=== PATIENT | male | born 1975 | race Caucasian/White ===

== ENCOUNTER 2017-07-01 03:17 | Emergency (ER) | payer BC ==
[2017-07-01] MEDS ORDERED: Lidocaine 1%* 5 ML VIAL ONE (04:15)
[2017-07-01] MEDS ORDERED: Lidocaine 2% EPI 1:200000 MPF* 20 ML VIAL ONE (04:16)
[2017-07-01] MEDS ORDERED: Amoxicillin/Clavulanate TAB* 875 MG PO ONE (04:45)
[2017-07-01] MEDS ORDERED: Tetan/Diph/Pertus SYR(Tdap)* 0.5 ML SYR(BOOSTRIX) use SYR IM ONE (04:48)
[2017-07-01 05:09] VITALS: BP 131/79
--- NOTE | 2017-07-02 16:34 | ED ---
Merissa Knapp Emily, scribed for Rom Avilez MD on 07/01/17 at 0350 . Bite Injury/Animal - HPI Summary HPI Summary: This patient is a 42 year old M presenting to [facility] [place] accompanied by friends with a chief complaint of animal bite to face that occurred [employer]. Pt reports being bitten once by neighbors dog while trying to break up a dog fight. The patient rates the pain 0/10 in severity. Symptoms aggravated by nothing. Symptoms alleviated by nothing. Pt reports dog being up to date on vaccines. - History of Current Complaint Chief Complaint: EDAnimalBite Stated Complaint: DOG BITE Time Seen by Provider: 07/01/17 03:26 Hx Obtained From: Patient Onset of Injury: Happened hours ago, Still Present Type of Bite: Pet Has Animal Been Immunized?: Yes Severity Initially: Mild Severity Currently: Mild Pain Intensity: 0 Pain Scale Used: 0-10 Numeric Character: Puncture Aggravating Factor(s): Nothing Alleviating Factor(s): Nothing - Allergies/Home Medications Allergies/Adverse Reactions: Allergies Allergy/AdvReac Type Severity Reaction Status Date / Time No Known Allergies Allergy Verified 07/01/17 03:23 PMH/Surg Hx/FS Hx/Imm Hx Previously Healthy: No GI History: Reports: Hx Gastroesophageal Reflux Disease Opthamlomology History: Denies: Hx Legally Blind - Surgical History Surgery Procedure, Year, and Place: [place] as a child - Immunization History Date of Tetanus Vaccine: unk Date of Influenza Vaccine: none Infectious Disease History: No Infectious Disease History: Denies: Traveled Outside the [place] in Last 30 Days - Family History Known Family History: Positive: Diabetes - Social History Occupation: Employed Full-time Lives: With Family Alcohol Use: Weekly Substance Use Type: Reports: None Smoking Status (MU): Never Smoked Tobacco Review of Systems Negative: Fever Positive: Other - Positive animal bite to face All Other Systems Reviewed And Are Negative: Yes Physical Exam - Summary Physical Exam Summary: Appearance: Well-appearing, no distress, Well-nourished Skin: Warm, color reflects adequate perfusion, 5 cm laceration on right maxilla with small flap mild bleeding. Multiple superficial abrasions approximately 8 cm to right maxillary area. Tenderness to palpation, mild. At the chin, 3 cm laceration with flap, bleeding controlled. 2.5 cm superficial laceration. Head: Normal Head/Face inspection Eyes: Conjunctiva clear ENT: Normal inspection Neck: Supple, no nodes, no JVD. Respiratory: Lungs clear, Normal breath sounds, no respiratory distress Cardio: RRR, No murmur, pulses normal, brisk capillary refill Abdomen: soft, nontender, no guarding, no rebound Bowel sounds: present Musculoskeletal: Strength Intact/ ROM intact. No calf tenderness. No edema. Neuro: Alert, muscle tone normal, facial symmetry, speech normal, sensory/motor intact Psychological: Normal Triage Information Reviewed: Yes Vital Signs On Initial Exam: Initial Vitals Temp Pulse Resp BP Pulse Ox 97.3 F 98 16 137/82 96 18 03:18 18 03:18 07/01/17 03:18 07/01/17 03:18 07/01/17 03:18 Vital Signs Reviewed: Yes Procedures - Laceration/Wound Repair 1 Location: face Description: Linear Anesthesia: Local, 1.0%, Lido Length, Depth and Shape: 5cm laceration with flap Betadine Prep?: No Laceration/Wound Explored: clean Closure: Single Layer, [place] #__ Suture Type: Nylon Number of Sutures: 4 Sterile Dressing Applied?: Yes 2 Location: Other - chin Description: Linear Anesthesia: Local, 1.0%, Lido Length, Depth and Shape: 3.0 cm laceration with flap Betadine Prep?: No Laceration/Wound Explored: clean Closure: Single Layer Suture Type: Nylon Number of Sutures: 3 Sterile Dressing Applied?: Yes 3 Location: Other - chin Description: Linear Anesthesia: Local, 1.0% Length, Depth and Shape: 2.5cm superficial Closure: Single Layer Suture Type: Nylon Number of Sutures: 3 Sterile Dressing Applied?: Yes Diagnostics - Vital Signs Vital Signs Temp Pulse Resp BP Pulse Ox 07/01/17 03:18 97.3 F 98 16 137/82 96 - Laboratory Lab Statement: Any lab studies that have been ordered have been reviewed, and results considered in the medical decision making process. Bite Injury Course/Dx - Course Course Of Treatment: Pt's lacerations loosely sutures with dressing placed. pt tetanus updated. pt started on oral abx. - Diagnoses Differential Diagnosis/HQI/PQRI: Positive: Laceration, Puncture, Superficial Infection, Deep Space Infection Provider Diagnosis: Dog bite, Facial laceration Images - Images Head: 1 - superficial abrasions with 1 large laceration with flap and one small superficial laceration. bleeding controlled. 2 - <1cm superficial laceration. bleeding controlled 3 - superficial laceration, bleeding controlled 4 - superficial laceration; bleeding controlled Discharge - Discharge Plan Condition: Improved Disposition: HOME Prescriptions: Amoxicillin/Clavulanate TAB* [Augmentin TAB 875*] 875 mg PO BID 5 Days #10 tab Ibuprofen TAB* [Motrin TAB* 800 MG] 800 mg PO Q6H PRN 5 Days #20 tab PRN Reason: Pain Patient Education Materials: Animal Bite (ED), Laceration (ED) Referrals: Ryan Campbell MD [Primary Care Provider] - 4 Days The documentation as recorded by the Merissa ma Emily accurately reflects the service I personally performed and the decisions made by , Rom Avilez MD.
== END 2017-07-01 05:08 | disposition home or self-care (01) ==
LOC: ED 03:17
DX: S01.85XA Open bite of other part of head, initial encounter (principal); W54.0XXA Bitten by dog, initial encounter; Y92.9 Unspecified place or not applicable; Z23 Encounter for immunization
CPT/HCPCS: 12013; 90471; 90715; 99282; A9270-GY

== ENCOUNTER 2019-05-02 09:18 | Emergency (ER) | payer SELFPAY ==
[2019-05-02 09:30] VITALS: BP 149/97
--- NOTE | 2019-05-02 10:38 | UC ---
Back Pain HPI - HPI Summary HPI Summary: 44-year-old male presents with complaints of left lower back pain that started yesterday at work as he was climbing out of a manhole and slipped off one of the rungs of the ladder. Pain is nonradiating. Worsens with bending, twisting , walking, and sitting. No alleviating factors however has not taken any over- the-counter analgesics. Denies difficulty ambulating, numbness, tingling, lower extremity weakness, loss of bowel or bladder control. - History of Current Complaint Chief Complaint: UCBackPain Stated Complaint: BACK INJURY Time Seen by Provider: 05/02/19 10:27 Hx Obtained From: Patient Pain Intensity: 8 - Allergies/Home Medications Allergies/Adverse Reactions: Allergies Allergy/AdvReac Type Severity Reaction Status Date / Time No Known Allergies Allergy Verified 05/02/19 09:31 PMH/Surg Hx/FS Hx/Imm Hx Previously Healthy: Yes - Denies significant PMH - Surgical History Surgical History: Yes Surgery Procedure, Year, and Place: [place] as a child rotator cuff on right - Family History Known Family History: Positive: Diabetes - Social History Occupation: Employed Full-time Lives: With Family Alcohol Use: Weekly Substance Use Type: None Smoking Status (MU): Former Smoker Review of Systems All Other Systems Reviewed And Are Negative: Yes Constitutional: Positive: Negative Skin: Positive: Negative Respiratory: Positive: Negative Cardiovascular: Positive: Negative Gastrointestinal: Positive: Negative Genitourinary: Positive: Negative Motor: Negative: Weakness Neurovascular: Negative: Decreased Sensation Musculoskeletal: Positive: Other: - See HPI Neurological: Positive: Negative Is Patient Immunocompromised?: No Physical Exam - Summary Physical Exam Summary: GENERAL APPEARANCE: Alert and cooperative obese male who appears to be in no acute distress. CARDIAC: Normal S1 and S2. No S3, S4 or murmurs. Rhythm is regular. There is no peripheral edema, cyanosis or pallor. Extremities are warm and well perfused. Capillary refill is less than 2 seconds. Peripheral pulses intact. LUNGS: Clear to auscultation without rales, rhonchi, wheezing or diminished breath sounds. ABDOMEN: Positive bowel sounds. Soft, nondistended, nontender. No guarding or rebound. No masses or hepatosplenomegally. MUSKULOSKELETAL: ROM intact to all extremities. No joint erythema or tenderness. Normal muscular development. Normal gait. BACK: No midline spinal deformity or tenderness. Left lower lumbar paraspinous soft tissue tenderness without spasm. NEUROLOGICAL: Strength and sensation symmetric and intact throughout. SKIN: Skin normal color, texture and turgor with no lesions or eruptions. Triage Information Reviewed: Yes Vital Signs: Initial Vital Signs Temp 98 F 05/02/19 09:24 Pulse 84 05/02/19 09:24 Resp 18 05/02/19 09:24 BP 149/97 05/02/19 09:24 Pulse Ox 100 05/02/19 09:24 Vital Signs Reviewed: Yes Back Pain Course/Dx - Course Course Of Treatment: 44-year-old male presents with complaints of left lower back pain that started yesterday at work as he was climbing out of a manhole and slipped off one of the rungs of the ladder. Pain is nonradiating. Worsens with bending, twisting , walking, and sitting. No alleviating factors however has not taken any over- the-counter analgesics. Denies difficulty ambulating, numbness, tingling, lower extremity weakness, loss of bowel or bladder control. Afebrile. Hypertensive otherwise vital signs stable. Patient hand no midline spinal tenderness or deformities but did have left lower lumbar soft tissue paraspinous tenderness with palpation with no spasm noted. Remainder of exam was unremarkable. Recommending conservative treatment for a lower back strain including NSAIDs, muscle relaxant, and heat therapy. He is to follow-up with his primary care provider or with occupational medicine in 3-5 days if there is no improvement in his symptoms. Anticipatory guidance and warning symptoms are reviewed with the patient. Verbalizes understanding and agrees with plan of care. - Differential Dx/Diagnosis Differential Diagnosis/HQI/PQRI: Herniated Disc, Strain Provider Diagnosis: Low back strain Discharge ED - Sign-Out/Discharge Documenting (check all that apply): Patient Departure All imaging exams completed and their final reports reviewed: No Studies - Discharge Plan Condition: Stable Disposition: HOME Prescriptions: Cyclobenzaprine HCl 10 mg PO Q8HR PRN #21 tablet PRN Reason: Spasms - Back Naproxen [Naproxen 500 mg tab] 500 mg PO Q12HR #30 tablet Patient Education Materials: Low Back Strain (ED), Lower Back Exercises (ED) Forms: *Work Release Referrals: Ryan Campbell MD [Primary Care Provider] - 5 Days Jovany Daniels MD [Medical Doctor] - Additional Instructions: Take naproxen 500 mg 1 tablet every 12 hours with food for the next 5-7 days. You may then take 1 tablet every 12 hours as needed for pain. Take cyclobenzaprine 10 mg 1 tablet every 8 hours as needed for severe pain or spasm. Use a heating pad to the affected area for 15-20 minutes at least 4 times a day to help with the pain into relax the muscles. Avoid heavy lifting. Follow-up with your primary care provider or with occupational medicine in 3-5 days if there is no improvement in your symptoms. Seek immediate medical attention in the emergency room if you develop a fever greater than 100.5 F, has severe pain despite taking pain medication, develop numbness, tingling, or weakness of the lower extremities, are unable to walk, lose control of her bowel or bladder, or have any worsening of symptoms. - Billing Disposition and Condition Condition: STABLE Disposition: Home
== END 2019-05-02 11:06 | disposition home or self-care (01) ==
LOC: UCEAST 09:18
DX: S39.012A Strain of muscle, fascia and tendon of lower back, initial encounter (principal); E66.9 Obesity, unspecified; I10 Essential (primary) hypertension; Z87.891 Personal history of nicotine dependence; W01.0XXA Fall on same level from slipping, tripping and stumbling without subsequent striking against object, initial encounter; Y92.9 Unspecified place or not applicable; Y99.0 Civilian activity done for income or pay
CPT/HCPCS: 99212; G0463